=== PATIENT | female | born 1990 | race Caucasian/White ===

== ENCOUNTER 2017-05-08 13:43 | Emergency (ER) | payer BC, OTHER ==
[~2017-05-08] VITALS: Ht 172.7 cm; Wt 83.8 kg
[2017-05-08 13:46] VITALS: BP 125/82
== END 2017-05-08 15:43 | disposition home or self-care (01) ==
LOC: ED 15:33
DX: O20.0 Threatened abortion (principal); Z3A.01 Less than 8 weeks gestation of pregnancy; G43.909 Migraine, unspecified, not intractable, without status migrainosus; J45.909 Unspecified asthma, uncomplicated; F41.9 Anxiety disorder, unspecified
CPT/HCPCS: 36415; 76801; 84702; 86901; 99285